=== PATIENT | female | born 1985 | race Caucasian/White ===

== ENCOUNTER 2024-04-03 09:29 | Emergency (ER) | payer BC, SELFPAY ==
[2024-04-03 09:34] VITALS: BP 120/72
--- NOTE | 2024-04-03 10:04 | ED.GENMED ---
History of Present Illness
<Merritt Mathew Jr., PA-C - Last Filed: 04/03/24 10:25>
General
Chief Complaint: Skin Problem
Source: patient
Exam Limitations: none
Time Seen by Provider: 04/03/24 09:41
Nursing documentation reviewed up to this point in time: agreed with
Travel History
Have you had any contact with someone who has COVID-19?: No
Do you have any symptoms of coronavirus? Fever > 100 degrees, chills, cough, shortness of breath, sore throat, loss of taste or smell, muscle aches, or headache?: No
History of Present Illness
History of Present Illness:
38-year-old female presenting to the emergency department today with concerns of a black discoloration to her left hand on the thumb as well as a small streak to the right thigh and right side of the face. Noticed that this morning denies systemic
symptoms no fevers. Unsure if she contacted any chemicals or anything concerning yesterday. Very mild discomfort to the blackened area on the left thumb
Past History
<Merritt Mathew Jr., PA-C - Last Filed: 04/03/24 10:25>
Past History
ED Past Medical History: None; Negative Asthma, HTN, Hypercholesterolemia or NIDDM
ED Past Surgical History: (X 2)
Social History
Tobacco: Non-smoker
Alcohol: Occasional
Personal:
Living: with family
Review of Systems
<IDANIA Colunga Jr. Last Filed: 04/03/24 10:25>
Review of Systems
Allergies reviewed?: Yes
All Other Systems: ROS reviewed and negative except as documented in HPI and ROS
Phy Exam
<IDANIA Colunga Jr. Last Filed: 04/03/24 10:25>
Physical Exam
Physical Exam:
GENERAL: Alert , in no apparent distress
EYE: pupils equal and reactive
NECK: Supple, no significant adenopathy.
ENT: o/p clr, mmm.
CARDIAC: Regular rate and rhythm .
LUNGS: Clear breath sounds bilaterally, no acute respiratory distress, no wheezes/rales/rhonchi
ABDOMEN: Soft, without focal tenderness, no r/g, no cvat
NEUROLOGICAL: Alert and oriented, no focal neuro deficits
SKIN: Very superficial black discoloration to the left thumb on the dorsal aspect small area to the palmar aspect at the thenar eminence also a linear area to the right outer thigh and right cheek very superficial good cap refill no tenderness to
palpation no redness or warmth. Warm and dry, skin intact.
MUSCULOSKELETAL: No edema, well perfused.
PSYCH: Normal and appropriate interaction.
Course
<Merritt Mathew Jr., PA-C - Last Filed: 04/03/24 10:25>
Vital Signs
Initial and Last Documented VS:
Initial Vital Signs
Temp Pulse Resp BP Pulse Ox
98.2 F 89 16 120/72 98
04/03/24 09:34 04/03/24 09:34 04/03/24 09:34 04/03/24 09:34 04/03/24 09:34
Last Documented Vital Signs
Temp Pulse Resp BP Pulse Ox
98.2 F 89 16 120/72 98
04/03/24 09:34 04/03/24 09:34 04/03/24 09:34 04/03/24 09:34 04/03/24 09:34
<Cortez Herrera DO - Last Filed: 04/03/24 13:29>
Vital Signs
Initial and Last Documented VS:
Initial Vital Signs
Temp Pulse Resp BP Pulse Ox
98.2 F 89 16 120/72 98
04/03/24 09:34 04/03/24 09:34 04/03/24 09:34 04/03/24 09:34 04/03/24 09:34
Last Documented Vital Signs
Temp Pulse Resp BP Pulse Ox
98.2 F 89 16 120/72 98
04/03/24 09:34 04/03/24 09:34 04/03/24 09:34 04/03/24 09:34 04/03/24 09:34
<Merritt Mathew Jr., PA-C - Last Filed: 04/03/24 10:25>
MDM/Problems Addressed
MDM/Problems Addressed:
38-year-old female without significant past medical history presenting to the emergency department today with concerns of a black discoloration she noticed this morning on her left thumb right outer thigh and right side of her face. Denies any
unable to wash it off. Denies any systemic symptoms fevers or additional concerns. Rash appears to be very superficial no systemic symptoms very unlikely to be a life-threatening type rash Case was additionally seen by attending physician
Mitzi who is in agreement. Patient stable for outpatient management return precautions were given.
<Merritt Mathew Jr., PA-C - Last Filed: 04/03/24 10:25>
*Critical Care Note
Total Time (30-74mins, 75-104mins- exclusive of procedures): Not Applicable
ED Attending Note
<Merritt Mathew Jr., PA-C - Last Filed: 04/03/24 10:25>
-
Portions of this chart may have been created with voice recognition software.� Occasional wrong word or��sound alike� substitutions may have occurred due to the inherent limitations of voice recognition software.
<Cortez Herrera DO - Last Filed: 04/03/24 13:29>
ED Attending Note
Patient seen and examined by attending physician: Yes
I performed the substantive portion of visit, reviewed & personally made and approve the management plan that is documented in note by myself or JOSE L.: Yes
ED Attending Note:
Sort of odd presentation of rash. Appears to be superficial almost tattooing from some substance. Does not appear to be systemic. Patient will monitor symptoms closely. Awake and alert. No petechiae. No fever.
Discharge Plan
Departure
Patient Disposition: Home (Routine Discharge)
Date of Disposition: 04/03/24
Time of Disposition: 10:23
Patient with high blood pressure during this ER visit?: No
Condition: Good
Covid-19: Not Applicable
Discharge Problem:
Rash
Instructions: Skin Rash (DC)
Prescriptions:
No Action
()
1 tab PO DAILY
Referrals:
Sisi Peters CRNP [Family Provider] -
Activity Restrictions/Additional Instructions:
You came to the emergency department today with concerns of a rash to your hands and face. This does not appear to be consistent with any systemic or life-threatening type of rash. Please keep a close eye on this and return to the ER for any
significant progression or concerns moving forward.
Interventions
Interventions:
*Risk Screen - Suicide Last Done: 04/03/24 10:30
*General Assessment Last Done: 04/03/24 10:30
*Neglect/Abuse Screening Last Done: 04/03/24 10:30
ED- Fall Risk Assessment Last Done: 04/03/24 10:31
*ED COVID-19 Vaccine History Last Done: 04/03/24 09:34
*Nursing Disposition Last Done: 04/03/24 10:31
ED-Skin Assessment Last Done: 04/03/24 10:30
Discharge Date and Time
Discharge Date/Time: 04/03/24 10:31
Print Language: PORTUGUESE
== END 2024-04-03 10:31 | disposition home or self-care (01) ==
LOC: EMR 09:29
PROVIDERS: EMERGENCY PHYSICIAN Emergency Medicine; FAMILY PHYSICIAN Nurse Practitioner Family
DX: R21 Rash and other nonspecific skin eruption (principal); Z88.2 Allergy status to sulfonamides
CPT/HCPCS: 99281